=== PATIENT | male | born 1965 | race Caucasian/White ===

== ENCOUNTER 2017-04-08 16:13 | Emergency (ER) | payer MEDICAID, OTHER, SELFPAY ==
[~2017-04-08] VITALS: Ht 182.9 cm; Wt 90.8 kg
[2017-04-08] MEDS ORDERED: KETOROLAC 30 MG/1 ML IM ONE (17:00)
[2017-04-08] MEDS ORDERED: DIAZEPAM 5 MG TABLET PO ONE (17:00)
[2017-04-08] MEDS ORDERED: HYDROcodone/APAP 5/325 TABLET PO ONE (19:00)
[2017-04-08] MEDS ORDERED: DIAZEPAM 5 MG TABLET ONE (19:25)
[2017-04-08] MEDS ORDERED: KETOROLAC 30 MG/1 ML ONE (19:25)
[2017-04-08] MEDS ORDERED: HYDROcodone/APAP 5/325 TABLET ONE (19:25)
[2017-04-08 19:39] VITALS: BP 152/106
== END 2017-04-08 19:41 | disposition home or self-care (01) ==
LOC: ED 19:35
DX: S29.012A Strain of muscle and tendon of back wall of thorax, initial encounter (principal); S39.012A Strain of muscle, fascia and tendon of lower back, initial encounter; W10.9XXA Fall (on) (from) unspecified stairs and steps, initial encounter; Y93.89 Activity, other specified; Y99.8 Other external cause status; Y92.89 Other specified places as the place of occurrence of the external cause
CPT/HCPCS: 72072; 72110; 96372; 99284; J1885